=== PATIENT | male | born 1950 | race Caucasian/White ===

== ENCOUNTER 2017-12-02 10:26 | Emergency (ER) | payer MEDICARE, BC ==
[~2017-12-02] VITALS: Ht 175.3 cm; Wt 98.0 kg
[2017-12-02 10:30] VITALS: BP 141/97; PULSE 71; RESP 18; TEMP 97.9; O2SAT 97
--- NOTE | 2017-12-02 10:58 | PD ---
HPI Chief Complaint: Neuro Symptoms/ Deficits Time Seen by Provider: 10:42 Travel History International Travel<30 days: No Contact w/Intl Traveler<30days: No Traveled to known affect area: No History of Present Illness HPI This patient woke up this morning at 8:30 and noticed that he had blurry vision in his left eye. He reports that the lateral half of his visual field on the left side is decreased and blurred out. He initially had some posterior headache when he woke up but that seems to have resolved for the most part. He does take a blood thinner but doesn't know the name of it. He is not having eye pain or discharge or redness. He denies speech trouble or muscle weakness or sensory loss or paresthesia. Symptoms severity is moderate. Duration 2 hours. No alleviating factors. No exacerbating factors. PFSH Past Medical History Cardiovascular Problems: Yes Influenza Vaccination: No Past Surgical History Abdominal Surgery: Yes (HERNIA) Cardiac Surgery: Yes (DEFIB AND PACEMAKER) Social History Alcohol Use: Yes Tobacco Use: No Allergies-Medications (Allergen,Severity, Reaction): Coded Allergies: No Known Allergies (Verified Allergy, Unknown, 12/02/17) Reported Meds & Prescriptions Reported Meds & Active Scripts Active Reported Lansoprazole 30 Mg Capdr 30 Mg PO DAILY Atorvastatin (Atorvastatin Calcium) 40 Mg Tab 40 Mg PO HS Aspirin 81 (Aspirin) 81 Mg Tabdr 81 Mg PO DAILY Metoprolol Tartrate 50 Mg Tab 50 Mg PO Q12HR Lisinopril 2.5 Mg Tab 2.5 Mg PO DAILY Review of Systems General / Constitutional: No: Fever Eyes: Positive: Blurred Vision, Visual changes HENT: Positive: Headaches Cardiovascular: No: Chest Pain or Discomfort Respiratory: No: Shortness of Breath Gastrointestinal: No: Abdominal Pain Genitourinary: No: Dysuria Musculoskeletal: No: Pain Skin: No Rash Neurologic: Positive: Headache, No: Weakness Psychiatric: No: Depression Endocrine: No: Polydipsia Hematologic/Lymphatic: No: Easy Bruising Physical Exam Narrative GENERAL: Well-nourished, well-developed patient in no apparent distress. SKIN: Focused skin assessment reveals no rash and nodules. Skin is Warm and dry. HEAD: Atraumatic. Normocephalic. EYES: Pupils equal and round. No scleral icterus. No injection or drainage. Extraocular muscles are intact. Visual field testing produces significant lateral visual field loss on the left eye. No double vision ENT: No nasal bleeding or discharge. Mucous membranes pink and moist. NECK: Trachea midline. No JVD. CARDIOVASCULAR: Regular rate and rhythm. No murmur appreciated. RESPIRATORY: No accessory muscle use. Clear to auscultation. Breath sounds equal bilaterally. GASTROINTESTINAL: Abdomen soft, non-tender, nondistended. Hepatic and splenic margins not palpable. MUSCULOSKELETAL: No obvious deformities. No clubbing. No cyanosis. No edema. NEUROLOGICAL: Awake and alert. No obvious cranial nerve deficits. Motor grossly within normal limits. Normal speech. PSYCHIATRIC: Appropriate mood and affect; insight and judgment normal. Data Data Last Documented VS Vital Signs Date Time Temp Pulse Resp B/P (MAP) Pulse Ox O2 Delivery O2 Flow Rate FiO2 12/02/17 11:35 95 Room Air 12/02/17 10:32 65 12/02/17 10:30 97.9 18 141/97 (112) Orders Orders Complete Blood Count With Diff (12/02/17 10:52) Basic Metabolic Panel (Bmp) (12/02/17 10:52) Ct Brain W/O Iv Contrast(Rout) (12/02/17 10:52) Ecg Monitoring (12/02/17 10:52) Iv Access Insert/Monitor (12/02/17 10:52) Oximetry (12/02/17 10:52) Labs Laboratory Tests Test 12/02/17 11:20 White Blood Count 9.9 TH/MM3 Red Blood Count 5.04 MIL/MM3 Hemoglobin 14.8 GM/DL Hematocrit 44.4 % Mean Corpuscular Volume 88.1 FL Mean Corpuscular Hemoglobin 29.4 PG Mean Corpuscular Hemoglobin Concent 33.3 % Red Cell Distribution Width 12.0 % Platelet Count 215 TH/MM3 Mean Platelet Volume 6.8 FL Neutrophils (%) (Auto) 73.5 % Lymphocytes (%) (Auto) 17.3 % Monocytes (%) (Auto) 7.6 % Eosinophils (%) (Auto) 1.2 % Basophils (%) (Auto) 0.4 % Neutrophils # (Auto) 7.3 TH/MM3 Lymphocytes # (Auto) 1.7 TH/MM3 Monocytes # (Auto) 0.8 TH/MM3 Eosinophils # (Auto) 0.1 TH/MM3 Basophils # (Auto) 0.0 TH/MM3 CBC Comment DIFF FINAL Differential Comment Blood Urea Nitrogen 21 MG/DL Creatinine 1.10 MG/DL Random Glucose 111 MG/DL Calcium Level 9.1 MG/DL Sodium Level 139 MEQ/L Potassium Level 4.5 MEQ/L Chloride Level 102 MEQ/L Carbon Dioxide Level 29.2 MEQ/L Anion Gap 8 MEQ/L Estimat Glomerular Filtration Rate 67 ML/MIN MDM Medical Decision Making Medical Screen Exam Complete: Yes Emergency Medical Condition: Yes Medical Record Reviewed: Yes Differential Diagnosis Retinal detachment, vitreous hemorrhage, intracranial hemorrhage, CVA Narrative Course I have reviewed the patient's electronic medical record. By history or exam I don't see any neurologic issues beyond blurry vision and visual field loss of the left eye. Seems more ophthalmologic in nature than strokelike. Given his posterior headache and blood thinner status of ordered brain CT to rule out hemorrhage Visual acuity looks fairly reasonable. 20/30 on the right and 20/25 on the left IV placed CBC is normal Metabolic profile is normal Brain CT is negative for hemorrhage or acute findings As noted, I believe this patient's having a ophthalmologic problem rather than a stroke problem. I spoke with licensed massage practitioner Dr. Walker and she is going to work him in for detailed retinal evaluation and ophthalmologic workup. He may be having retinal detachment or vitreous hemorrhage etc. We discussed stroke symptoms with the patient. If he developed speech slurring or muscle weakness or any other more strokelike situation he will return promptly Diagnosis Primary Impression: Loss of peripheral visual field Qualified Codes: H53.452 - Other localized visual field defect, left eye Additional Impression: Blurry vision, left eye Additional Instructions: Follow-up with Dr. Walker, ophthalmology Med/Other Pt SpecificInfo: Other Disposition: 01 DISCHARGE HOME Condition: Stable Fabrizio Vogel MD Dec 02, 2017 10:58
[2017-12-02] MEDS ORDERED: ASPI1TAB57 PO (11:07)
[2017-12-02] MEDS ORDERED: LISI2.5T3 PO (11:07)
[2017-12-02] MEDS ORDERED: ATOR40TA16 PO (11:07)
[2017-12-02] MEDS ORDERED: LANS30CA PO (11:07)
[2017-12-02] MEDS ORDERED: METO50TA PO (11:07)
--- NOTE | 2017-12-02 11:16 | RADRPT ---
EXAM DATE/TIME: 12/02/2017 11:02 [facility] COMPARISON: No previous studies available for comparison. INDICATIONS : Head pressure, blurred vision, no peripheral vision, unsteady gate since this morning. Evaluate for cerebrovascular accident. RADIATION DOSE: 65.12 CTDIvol (mGy) MEDICAL HISTORY : Cardiovascular disease. SURGICAL HISTORY : Pacemaker. ENCOUNTER: Initial ACUITY: 1 day PAIN SCALE: 2/10 LOCATION: cranial TECHNIQUE: Multiple contiguous axial images were obtained of the head. Using automated exposure control and adj ustment of the mA and/or kV according to patient size, radiation dose was kept as low as reasonably a chievable to obtain optimal diagnostic quality images. DICOM format image data is available electro nically for review and comparison. FINDINGS: CEREBRUM: The ventricles are normal for age. No evidence of midline shift, mass lesion, hemorrhage or acute in farction. No extra-axial fluid collections are seen. POSTERIOR FOSSA: The cerebellum and brainstem are intact. The 4th ventricle is midline. The cerebellopontine angle i s unremarkable. EXTRACRANIAL: The visualized portion of the orbits is intact. SKULL: The calvaria is intact. No evidence of skull fracture. CONCLUSION: No acute disease. Cole Myrick MD on December 02, 2017 at 11:13 Board Certified Radiologist. This report was verified electronically.
[2017-12-02 11:27] LABS: AUTOMATED NEUTROPHIL # 7.3 TH/MM3 (1.8-7.7); BASOPHIL % 0.4 % (0.0-2.0); EOSINOPHIL # 0.1 TH/MM3 (0-0.4); EOSINOPHIL % 1.2 % (0.0-4.0); HEMATOCRIT 44.4 % (39.0-51.0); HEMOGLOBIN 14.8 GM/DL (13.0-17.0); LYMPH % 17.3 % (9.0-44.0); LYMPHOCYTE # 1.7 TH/MM3 (1.0-4.8); MEAN CELL VOLUME 88.1 FL (80.0-100.0); MEAN CORPUSCULAR HEMOGLOBIN 29.4 PG (27.0-34.0); MEAN CORPUSCULAR HGB CONC 33.3 % (32.0-36.0); MEAN PLATELET VOLUME 6.8 FL (7.0-11.0); MONO % 7.6 % (0.0-8.0); MONOCYTE # 0.8 TH/MM3 (0-0.9); NEUT % 73.5 % (16.0-70.0); PLATELET COUNT 215 TH/MM3 (150-450); RED BLOOD COUNT 5.04 MIL/MM3 (4.50-5.90); WHITE BLOOD COUNT 9.9 TH/MM3 (4.0-11.0)
[2017-12-02 11:35] VITALS: O2SAT 95
[2017-12-02 11:36] LABS: BICARBONATE 29.2 MEQ/L (21.0-32.0); CALCIUM 9.1 MG/DL (8.5-10.1)
[2017-12-02 11:40] LABS: CREATININE 1.1 MG/DL (0.60-1.30)
[2017-12-02 12:24] VITALS: BP 169/86
== END 2017-12-02 12:37 | disposition home or self-care (01) ==
LOC: PHED 10:26
DX: H53.452 Other localized visual field defect, left eye (principal); H53.8 Other visual disturbances; R51 Headache; Z79.82 Long term (current) use of aspirin; Z79.899 Other long term (current) drug therapy
CPT/HCPCS: 70450; 80048; 85025; 99284